=== PATIENT | female | born 1985 | race Caucasian/White ===

== ENCOUNTER 2020-06-29 13:20 | Emergency (ER) | payer OTHER ==
[~2020-06-29] VITALS: Ht 154.9 cm; Wt 95.0 kg
[2020-06-29 13:28] VITALS: BP 146/98
[2020-06-29] MEDS ORDERED: OXYcodone/APAP 5/325MG TABLET PO ONE (14:00)
[2020-06-29] MEDS ORDERED: OXYcodone/APAP 5/325MG TABLET ONE (14:02)
== END 2020-06-29 15:16 | disposition home or self-care (01) ==
LOC: ED 14:45
DX: S50.01XA Contusion of right elbow, initial encounter (principal); R51.9 Headache, unspecified; W01.0XXA Fall on same level from slipping, tripping and stumbling without subsequent striking against object, initial encounter; Y93.89 Activity, other specified; Y92.89 Other specified places as the place of occurrence of the external cause; Y99.0 Civilian activity done for income or pay
CPT/HCPCS: 99283